=== PATIENT | female | born 1950 | race Caucasian/White ===

== ENCOUNTER → 2016-08-29 | Outpatient (CLI) | payer OTHER | END | disposition home or self-care (01) | LOC: MAMMO 03:31 | DX: Z12.31 Encounter for screening mammogram for malignant neoplasm of breast (principal) ==

== ENCOUNTER → 2019-01-03 | Outpatient (CLI) | payer OTHER ==
[2019-01-03 09:57] LABS: BUN 16 mg/dl (7-24); CHLORIDE 102 mmol/L (98-107); CHOLESTEROL 217 mg/dL (<200); POTASSIUM 3.6 mmol/L (3.5-5.1); SODIUM 138 mmol/L (136-145); TRIGLYCERIDES 271 mg/dl (<150); VLDL CHOLESTEROL 54 mg/dL (6-40)
[2019-01-03 09:59] LABS: HDL CHOLESTEROL 47 mg/dl (40-60); LDL CHOLESTEROL 116 mg/dL (9-159)
== END | disposition home or self-care (01) ==
LOC: LAB 08:47
PROVIDERS: Family Medicine
DX: E11.9 Type 2 diabetes mellitus without complications (principal); I10 Essential (primary) hypertension; E78.2 Mixed hyperlipidemia

== ENCOUNTER → 2019-04-16 | Day surgery (SDC) | payer OTHER ==
[~2019-04-16] VITALS: Ht 162.5 cm; Wt 86.2 kg
[~2019-04-16] MED LIST: AMLODIPINE BESYL5 MG PO; DULERA 200 MCG8.8 GM INH; GLUCOPHAGE500 M1 PO; LOSARTAN-HCTZ1 EAC1 PO; POTASSIUM CHLO20 ME3 PO; SIMVASTATIN40 MG PO
[2019-04-16 07:30] VITALS: BP 145/90
[2019-04-16 08:22] VITALS: BP 95/48
[2019-04-16 08:35] VITALS: BP 91/54
[2019-04-16 08:53] VITALS: BP 107/70
== END | disposition home or self-care (01) ==
LOC: SDC 04-10 13:15
DX: K62.5 Hemorrhage of anus and rectum (principal); D12.3 Benign neoplasm of transverse colon; K64.8 Other hemorrhoids; I10 Essential (primary) hypertension; E11.9 Type 2 diabetes mellitus without complications; E78.5 Hyperlipidemia, unspecified; J45.909 Unspecified asthma, uncomplicated; F41.9 Anxiety disorder, unspecified; F32.9 Major depressive disorder, single episode, unspecified; Z98.890 Other specified postprocedural states; Z83.3 Family history of diabetes mellitus; Z82.49 Family history of ischemic heart disease and other diseases of the circulatory system; Z80.8 Family history of malignant neoplasm of other organs or systems

== ENCOUNTER → 2020-06-08 | Outpatient (CLI) | payer OTHER ==
[2020-06-08 08:40] LABS: BUN 12 mg/dl (7-24); CHLORIDE 106 mmol/L (98-107); CHOLESTEROL 171 mg/dL (<200); CREATININE 1.06 mg/dL (0.55-1.02); HDL CHOLESTEROL 49 mg/dl (40-60); LDL CHOLESTEROL 88 mg/dL (9-159); POTASSIUM 3.2 mmol/L (3.5-5.1); SODIUM 138 mmol/L (136-145); TRIGLYCERIDES 172 mg/dl (<150); VLDL CHOLESTEROL 34 mg/dL (6-40)
== END | disposition home or self-care (01) ==
LOC: LAB 00:17
PROVIDERS: ATTEND Family Medicine
DX: E11.9 Type 2 diabetes mellitus without complications (principal); E78.2 Mixed hyperlipidemia; I10 Essential (primary) hypertension

== ENCOUNTER → 2021-05-05 | Outpatient (CLI) | payer OTHER ==
[2021-05-05 09:09] LABS: CREATININE 1.2 mg/dL (0.55-1.02); POTASSIUM 3.4 mmol/L (3.5-5.1)
[2021-05-05 09:16] LABS: THYROID STIM HORMONE (HS) 1.54 uIU/ml (0.358-4.75)
== END | disposition home or self-care (01) ==
LOC: LAB 07:33
PROVIDERS: ATTEND Family Medicine
DX: I10 Essential (primary) hypertension (principal); E11.9 Type 2 diabetes mellitus without complications; E78.2 Mixed hyperlipidemia

== ENCOUNTER → 2021-08-19 | Outpatient (CLI) | payer OTHER ==
[2021-08-19 09:15] LABS: BUN 16 mg/dl (7-24); CHLORIDE 107 mmol/L (98-107); CREATININE 0.98 mg/dL (0.55-1.02); SODIUM 140 mmol/L (136-145)
== END | disposition home or self-care (01) ==
LOC: LAB 07:42
PROVIDERS: ATTEND Family Medicine
DX: I10 Essential (primary) hypertension (principal); E11.9 Type 2 diabetes mellitus without complications

== ENCOUNTER → 2021-12-29 | Outpatient (CLI) | payer OTHER ==
[2021-12-29 08:24] LABS: BUN 15 mg/dl (7-24); CHLORIDE 106 mmol/L (98-107); CHOLESTEROL 166 mg/dL (<200); CREATININE 0.98 mg/dL (0.55-1.02); LDL CHOLESTEROL 78 mg/dL (9-159); POTASSIUM 3.9 mmol/L (3.5-5.1); SODIUM 139 mmol/L (136-145); TRIGLYCERIDES 232 mg/dl (<150)
== END | disposition home or self-care (01) ==
LOC: LAB 07:45
PROVIDERS: ATTEND Family Medicine
DX: E11.9 Type 2 diabetes mellitus without complications (principal); I10 Essential (primary) hypertension

== ENCOUNTER → 2023-03-23 | Outpatient (CLI) | payer OTHER ==
[2023-03-23 08:27] LABS: BUN 14 mg/dl (9-23); CHLORIDE 104 mmol/L (98-107); CHOLESTEROL 167 mg/dL (<200); LDL CHOLESTEROL 83 mg/dL (9-159); POTASSIUM 3.9 mmol/L (3.4-5.1); TRIGLYCERIDES 214 mg/dl (<150)
== END | disposition home or self-care (01) ==
LOC: LAB 01:06
PROVIDERS: ATTEND Family Medicine
DX: I10 Essential (primary) hypertension (principal); E11.9 Type 2 diabetes mellitus without complications

== ENCOUNTER 2023-11-21 21:54 | Emergency (ER) | payer OTHER ==
[~2023-11-21] VITALS: Ht 160 cm; Wt 81.6 kg
[2023-11-21] MEDS ORDERED: Ondansetron Hydrochloride 4 MG TAB SL ONE (22:25)
[2023-11-21] MEDS ORDERED: Meclizine Hydrochloride 25 MG TAB PO ONE (22:25)
[2023-11-22] MEDS ORDERED: MEDI-MECLIZINE25 MG PO (00:28)
[2023-11-22] MEDS ORDERED: Ondansetron4 MG PO (00:28)
[2023-11-22] MEDS ORDERED: Meclizine Hydrochloride 25 MG TAB PO ONE (00:45)
[2023-11-22] MEDS ORDERED: Ondansetron Hydrochloride 4 MG TAB SL ONE (00:45)
[2023-11-22 00:57] VITALS: BP 127/71
== END 2023-11-22 01:00 | disposition home or self-care (01) ==
LOC: ED 21:54
DX: H81.10 Benign paroxysmal vertigo, unspecified ear (principal); F41.9 Anxiety disorder, unspecified; E11.9 Type 2 diabetes mellitus without complications; J45.909 Unspecified asthma, uncomplicated; I10 Essential (primary) hypertension; Z91.040 Latex allergy status; Z98.890 Other specified postprocedural states

== ENCOUNTER → 2023-11-24 | Outpatient (CLI) | payer OTHER ==
[~2023-11-24] MED LIST changes: +MEDI-MECLIZINE25 MG PO; +Ondansetron4 MG PO
[2023-11-24 10:24] LABS: BASO # 0.1 10*3/uL (0.0-0.1); EOS # 0.4 10*3/uL (0.0-0.4); EOS % 6.2 % (1.0-4.0); HEMATOCRIT 41.4 % (37.0-47.0); LYMPH # 1.9 10*3/uL (1.3-4.4); LYMPH % 27.1 % (27.0-41.0); MEAN CELL VOLUME 83.5 fl (81.0-99.0); MEAN CORPUSCULAR HGB 27.2 pg (27.0-31.0); MEAN CORPUSCULAR HGB CONC 32.6 g/dl (33.0-37.0); MEAN PLATELET VOLUME 8.6 fl (9.6-12.3); MONO # 0.6 10*3/uL (0.1-1.0); MONO % 7.8 % (3.0-9.0); NEUT # 4.1 10*3/uL (2.3-7.9); NEUT % 57.6 % (47.0-73.0); PLATELET COUNT AUTOMATED 356 10*3/uL (130-400); RED BLOOD COUNT 4.96 10*6/uL (4.10-5.10); RED CELL DISTRI WIDTH 13.2 % (0-14.5); WHITE BLOOD COUNT 7.1 10*3/uL (4.8-10.8)
[2023-11-24 10:48] LABS: ALKALINE PHOSPHATASE 96 U/L (46-116); BUN 12 mg/dl (9-23); CHLORIDE 104 mmol/L (98-107); CHOLESTEROL 167 mg/dL (<200); FREE T4 1.26 ng/dl (0.89-1.76); LDL CHOLESTEROL 84 mg/dL (9-159); POTASSIUM 3.8 mmol/L (3.4-5.1); SGPT/ALT 27 U/L (5-49); TRIGLYCERIDES 221 mg/dl (<150)
[2023-11-24 10:58] LABS: VITAMIN D, 25-HYDROXY 36.5 ng/mL (30-100)
== END | disposition home or self-care (01) ==
LOC: LAB 02:23
PROVIDERS: ATTEND Internal Medicine
DX: I10 Essential (primary) hypertension (principal); E11.9 Type 2 diabetes mellitus without complications; E78.5 Hyperlipidemia, unspecified

== ENCOUNTER 2023-12-05 06:42 | Emergency (ER) | payer OTHER ==
[~2023-12-05] VITALS: Ht 162.5 cm; Wt 81.6 kg
[2023-12-05] MEDS ORDERED: Lidocaine Hydrochloride 15 ML UDC PO ONE (07:15)
[2023-12-05] MEDS ORDERED: Dexamethasone Sodium Phospha 10 MG/1 ML VIAL IM ONE (07:15)
[2023-12-05 07:30] VITALS: BP 138/70
== END 2023-12-05 07:44 | disposition home or self-care (01) ==
LOC: ED 06:42
DX: K12.2 Cellulitis and abscess of mouth (principal); E11.9 Type 2 diabetes mellitus without complications; J45.909 Unspecified asthma, uncomplicated; I10 Essential (primary) hypertension; Z91.040 Latex allergy status; Z98.890 Other specified postprocedural states

== ENCOUNTER → 2024-01-31 | Outpatient (CLI) | payer OTHER | END | disposition home or self-care (01) | LOC: MAMMO 02:43 | PROVIDERS: ATTEND Internal Medicine | DX: Z12.31 Encounter for screening mammogram for malignant neoplasm of breast (principal) ==